=== PATIENT | female | born 1955 | race Caucasian/White ===

== ENCOUNTER 2017-09-17 21:12 | Emergency (ER) | payer MEDICAID, OTHER ==
[~2017-09-17] VITALS: Ht 180.3 cm; Wt 77.1 kg
[2017-09-17 22:01] LABS: Basophils # (auto) 0.1 uL; Basophils % (auto) 0.8 % (0.0-2.0); Eosinophils # (auto) 0.1 uL; Eosinophils % (auto) 0.7 % (0.0-7.0); Hematocrit 36.3 % (36.0-46.0); Hemoglobin 12.5 g/dL (12.2-16.2); Lymphocytes # (auto) 1.3 uL; Mean Corpuscular Hemoglobin 31.8 pg (28.0-32.0); Mean Corpuscular Hgb Conc. 34.4 g/dL (32.0-36.0); Mean Corpuscular Volume 92.4 fL (80.0-100.0); Monocytes # (auto) 0.4 uL; Monocytes % (auto) 5.6 % (0.0-12.0); Neutrophils # (auto) 5.8 uL; Neutrophils % (auto) 75.9 % (37.0-80.0); Platelet Count (auto) 265 10^3/uL (140-450); Red Blood Cells 3.93 10^6/uL (4.0-5.20); Red Cell Distribution Width 13.1 % (11.8-14.3); White Blood Cell 7.6 10^3/uL (4.4-10.8)
[2017-09-17 22:13] LABS: INR 0.91 (0.9-1.15); Prothrombin Time 9.9 sec (9.37-12.3)
[2017-09-17 22:16] LABS: Albumin 3.8 g/dL (3.4-5.0); Anion Gap 9 (5-15); BUN/Creatinine Ratio 12.2; Blood Urea Nitrogen 10 mg/dL (7-18); Calcium 8.8 mg/dL (8.5-10.1); Carbon Dioxide 25 mmol/L (21-32); Chloride 103 mmol/L (98-107); GFR African American 91 mL/min; GFR Non-African American 76 mL/min; Glucose 134 mg/dL (74-106); Potassium 3.8 mmol/L (3.5-5.1); Sodium 137 mmol/L (136-145)
[2017-09-17 22:37] LABS: Alanine Aminotransferase 29 U/L (13-56); Alkaline Phosphatase 66 U/L (45-117); Aspartate Aminotransferase 24 U/L (15-37); Bilirubin, Total 0.3 mg/dL (0.2-1.0); Blood Alcohol < 3.0 mg/dL (0-5); Total Protein 7.3 g/dL (6.4-8.2)
[2017-09-17] MEDS ORDERED: SODIUM CHLORIDE 0.9% 1,000 ML IV ONE (23:45)
[2017-09-17 23:58] LABS: Salicylate < 1.7 mg/dL (2.8-20.0)
[2017-09-18 00:01] LABS: Acetaminophen < 2.0 ug/mL (10-30); Amylase 36 U/L (25-115); Lipase 138 U/L (73-393)
[2017-09-18] MEDS ORDERED: FAMOTIDINE (10MG/ML) 2ML VL IV ONE (01:15)
[2017-09-18] MEDS ORDERED: cloNIDine HCL 0.1 MG TAB PO ONE (01:15)
[2017-09-18] MEDS ORDERED: diphenhdrAMINE HCL 50 MG/1 ML VL IV ONE (02:00)
[2017-09-18] MEDS ORDERED: MORPHINE SULFATE 4 MG/ML SYR/VIAL IV ONE (02:00)
[2017-09-18 03:33] LABS: Urine WBC None Seen /hpf (0 - 5)
[2017-09-18 03:41] LABS: Urine Bacteria NONE SEEN /hpf (None Seen); Urine Blood Negative /uL (Negative); Urine Specific Gravity 1.006 (1.001-1.035)
[2017-09-18 03:56] LABS: Alcohol, Urine < 3.0 mg/dL (0-5); Amphetamine Screen, Urine NEGATIVE (NEGATIVE); Barbiturate Scree,Urine NEGATIVE (NEGATIVE); Benzodiazephine Screen, Urine NEGATIVE (NEGATIVE); Cannabinoid Screen, Urine NEGATIVE (NEGATIVE); Cocaine Screen, Urine NEGATIVE (NEGATIVE); Opiate Scree,Urine POSITIVE (NEGATIVE); Phencyclidine Screen, Urine NEGATIVE (NEGATIVE)
[2017-09-18 05:27] VITALS: BP 165/111
[2017-09-18] MEDS ORDERED: HYDROmorphone HCL 2 MG/ML VL ONE (05:29)
[2017-09-18] MEDS ORDERED: METOCLOPRAMIDE HCL 5MG/ml INJ 2ml VIAL ONE (05:30)
[2017-09-18] MEDS ORDERED: HYDROmorphone HCL 2 MG/ML VL IV ONE (05:45)
[2017-09-18] MEDS ORDERED: METOCLOPRAMIDE HCL 5MG/ml INJ 2ml VIAL IV ONE (05:45)
[2017-09-19] MEDS ORDERED: MET50T PO (13:33)
[2017-09-19] MEDS ORDERED: MET25T (13:33)
[2017-09-19] MEDS ORDERED: HYDR-4072 (13:33)
[2017-09-19] MEDS ORDERED: RANI-229 (13:33)
[2017-09-19] MEDS ORDERED: LEV25T PO (13:33)
[2017-09-19] MEDS ORDERED: [UNRECOGNIZED DRUG - CODE] (13:33)
[2017-09-19] MEDS ORDERED: GABA800T97 PO (13:33)
[2017-09-19] MEDS ORDERED: ZOSTINJ (13:33)
[2017-09-19] MEDS ORDERED: BACL20TA (13:33)
[2017-09-19] MEDS ORDERED: AMIT100T2 PO (13:33)
[2017-09-19] MEDS ORDERED: LORA10TA12 PO (13:33)
[2017-09-19] MEDS ORDERED: SUMA100T15 PO (13:33)
== END 2017-09-18 06:18 | disposition home or self-care (01) ==
LOC: EDBD 21:12 → ER 21:21
DX: R41.82 Altered mental status, unspecified (principal); G92 Toxic encephalopathy; I10 Essential (primary) hypertension; F17.210 Nicotine dependence, cigarettes, uncomplicated; N13.30 Unspecified hydronephrosis
CPT/HCPCS: 36415; 70450; 71045; 74176; 80053; 80307; 80320; 80329; 81001; 82140; 82150; 83690; 83735; 83880; 84484; 84702; 85025; 85610; 85730; 93005; 96374; 96375; 99285; J1170; J1200; J2270; J2765; J3490; J7030

== ENCOUNTER 2017-09-18 13:02 | Inpatient (IN) | payer MEDICAID, OTHER ==
[~2017-09-18] VITALS: Ht 175.3 cm; Wt 74.7 kg
[2017-09-18] MEDS ORDERED: SODIUM CHLORIDE 0.9% 1,000 ML IV ONE (13:16)
[2017-09-18 13:35] LABS: Basophils # (auto) 0.1 uL; Basophils % (auto) 0.8 % (0.0-2.0); Eosinophils # (auto) 0.1 uL; Eosinophils % (auto) 0.6 % (0.0-7.0); Hematocrit 39.1 % (36.0-46.0); Hemoglobin 13.2 g/dL (12.2-16.2); Lymphocytes # (auto) 1.4 uL; Lymphocytes % (auto) 17.9 % (10.0-50.0); Mean Corpuscular Hemoglobin 31.5 pg (28.0-32.0); Mean Corpuscular Hgb Conc. 33.6 g/dL (32.0-36.0); Mean Corpuscular Volume 93.5 fL (80.0-100.0); Monocytes # (auto) 0.8 uL; Monocytes % (auto) 9.5 % (0.0-12.0); Neutrophils # (auto) 5.6 uL; Neutrophils % (auto) 71.2 % (37.0-80.0); Nucleated Red Blood Cells % 0.1 %; Platelet Count (auto) 275 10^3/uL (140-450); Red Blood Cells 4.18 10^6/uL (4.0-5.20); Red Cell Distribution Width 13.4 % (11.8-14.3); White Blood Cell 7.9 10^3/uL (4.4-10.8)
[2017-09-18 13:55] LABS: Albumin 3.9 g/dL (3.4-5.0); Anion Gap 11 (5-15); Blood Urea Nitrogen 8 mg/dL (7-18); Carbon Dioxide 23 mmol/L (21-32); Chloride 106 mmol/L (98-107); Glucose 104 mg/dL (74-106); Potassium 3.5 mmol/L (3.5-5.1); Sodium 140 mmol/L (136-145)
[2017-09-18 13:57] LABS: Alanine Aminotransferase 32 U/L (13-56); Aspartate Aminotransferase 26 U/L (15-37); BUN/Creatinine Ratio 10.1; GFR African American 95 mL/min; GFR Non-African American 79 mL/min
[2017-09-18 14:02] LABS: Alkaline Phosphatase 74 U/L (45-117); Bilirubin, Total 0.3 mg/dL (0.2-1.0)
[2017-09-18] MEDS ORDERED: HYDROcodone-ACET 5/325MG TAB PO PRN (20:45)
[2017-09-18] MEDS ORDERED: ONDANSETRON HCL 4 MG/2 ML VIAL IV PRN (20:45)
[2017-09-18] MEDS ORDERED: ACETAMINOPHEN 325 MG TAB PO PRN (20:45)
[2017-09-18] MEDS ORDERED: TEMAZEPAM 15 MG CAP PO PRN (20:45)
[2017-09-18] MEDS: LORazepam 2MG/ML-1ML VIAL IV PRN (21:41)
[2017-09-18] MEDS: FAMOTIDINE 20 MG TAB PO SCH (21:46)
[2017-09-18] MEDS: GABAPENTIN 400 MG CAP PO SCH (22:00)
[2017-09-18] MEDS: METOPROLOL TARTRATE 25 MG TAB PO SCH (22:00)
[2017-09-18] MEDS: AMITRIPTYLINE HCL 25 MG TAB PO SCH (22:00)
[2017-09-18] MEDS ORDERED: METOPROLOL TARTRATE 1MG/1ML-5ML VIAL IV ONE (22:15)
[2017-09-18] MEDS ORDERED: HALOPERIDOL LACTATE 5 MG/ML INJ VIAL IM ONE (22:30)
[2017-09-19 00:30] LABS: Urine Bacteria NONE SEEN /hpf (None Seen); Urine Blood Negative /uL (Negative); Urine Mucus FEW (None Seen); Urine Specific Gravity 1.013 (1.001-1.035); Urine WBC 1 /hpf (0 - 5)
[2017-09-19 00:38] LABS: Alcohol, Urine < 3.0 mg/dL (0-5); Amphetamine Screen, Urine NEGATIVE (NEGATIVE); Barbiturate Scree,Urine NEGATIVE (NEGATIVE); Benzodiazephine Screen, Urine NEGATIVE (NEGATIVE); Cannabinoid Screen, Urine NEGATIVE (NEGATIVE); Cocaine Screen, Urine NEGATIVE (NEGATIVE); Opiate Scree,Urine POSITIVE (NEGATIVE); Phencyclidine Screen, Urine NEGATIVE (NEGATIVE)
[2017-09-19] MEDS: LORazepam 2MG/ML-1ML VIAL IV PRN (04:44)
[2017-09-19 05:10] LABS: Basophils # (auto) 0.2 uL; Basophils % (auto) 2.6 % (0.0-2.0); Eosinophils # (auto) 0.1 uL; Eosinophils % (auto) 1.6 % (0.0-7.0); Hematocrit 39.5 % (36.0-46.0); Lymphocytes # (auto) 0.8 uL; Lymphocytes % (auto) 10.6 % (10.0-50.0); Mean Corpuscular Hemoglobin 30.9 pg (28.0-32.0); Mean Corpuscular Hgb Conc. 32.8 g/dL (32.0-36.0); Mean Corpuscular Volume 94.1 fL (80.0-100.0); Monocytes # (auto) 0.6 uL; Monocytes % (auto) 7.2 % (0.0-12.0); Neutrophils # (auto) 6.2 uL; Nucleated Red Blood Cells % 0.1 %; Platelet Count (auto) 292 10^3/uL (140-450); Red Cell Distribution Width 13.5 % (11.8-14.3)
[2017-09-19 05:29] LABS: Albumin 3.6 g/dL (3.4-5.0); BUN/Creatinine Ratio 14.8; Potassium 3.6 mmol/L (3.5-5.1)
[2017-09-19 05:32] LABS: Bilirubin, Total 0.4 mg/dL (0.2-1.0); Total Protein 7.4 g/dL (6.4-8.2)
[2017-09-19] MEDS: GABAPENTIN 400 MG CAP PO SCH ×3 (06:00→22:00)
[2017-09-19] MEDS: LEVOTHYROXINE SODIUM 25 MCG TAB PO SCH (07:00)
[2017-09-19] MEDS: METOPROLOL TARTRATE 25 MG TAB PO SCH ×2 (10:20→22:00)
[2017-09-19] MEDS: FAMOTIDINE 20 MG TAB PO SCH ×2 (10:20→22:00)
[2017-09-19] MEDS: ENOXAPARIN SOD 40 MG/0.4 ML SYRINGE SC SCH (10:20)
[2017-09-19] MEDS ORDERED: AMIT100T2 PO (13:33)
[2017-09-19] MEDS ORDERED: RANI-229 (13:33)
[2017-09-19] MEDS ORDERED: ZOSTINJ (13:33)
[2017-09-19] MEDS ORDERED: LORA10TA12 PO (13:33)
[2017-09-19] MEDS ORDERED: HYDR-4072 (13:33)
[2017-09-19] MEDS ORDERED: LEV25T PO (13:33)
[2017-09-19] MEDS ORDERED: BACL20TA (13:33)
[2017-09-19] MEDS ORDERED: SUMA100T15 PO (13:33)
[2017-09-19] MEDS ORDERED: MET25T (13:33)
[2017-09-19] MEDS ORDERED: MET50T PO (13:33)
[2017-09-19] MEDS ORDERED: GABA800T97 PO (13:33)
[2017-09-19] MEDS ORDERED: [UNRECOGNIZED DRUG - CODE] (13:33)
[2017-09-19] MEDS: AMITRIPTYLINE HCL 25 MG TAB PO SCH (22:00)
[2017-09-19 22:50] VITALS: BP 167/94
[2017-09-19] MEDS: hydrALAZINE HCL 20 MG/ML VL IV PRN (22:56)
[2017-09-20] MEDS: hydrALAZINE HCL 20 MG/ML VL IV PRN (06:00)
[2017-09-20] MEDS: GABAPENTIN 400 MG CAP PO SCH ×3 (06:00→21:56)
[2017-09-20] MEDS: LEVOTHYROXINE SODIUM 25 MCG TAB PO SCH (06:30)
[2017-09-20 07:12] VITALS: BP 141/85
[2017-09-20 09:30] VITALS: BP 146/85
[2017-09-20] MEDS: ENOXAPARIN SOD 40 MG/0.4 ML SYRINGE SC SCH (10:00)
[2017-09-20] MEDS: FAMOTIDINE 20 MG TAB PO SCH ×2 (10:00→21:56)
[2017-09-20 13:00] VITALS: BP 155/91
[2017-09-20] MEDS ORDERED: METOPROLOL TARTRATE 1MG/1ML-5ML VIAL IV PRN (13:00)
[2017-09-20] MEDS ORDERED: SODIUM CHLORIDE 0.9% 1,000 ML IV ONE (14:30)
[2017-09-20] MEDS: LORazepam 2MG/ML-1ML VIAL IV PRN ×2 (16:14→16:20)
[2017-09-20] MEDS ORDERED: LORazepam 2MG/ML-1ML VIAL IV PRN ×2 (16:45→19:45)
[2017-09-20 17:00] VITALS: BP 147/86
[2017-09-20] MEDS: AMITRIPTYLINE HCL 25 MG TAB PO SCH (21:56)
[2017-09-20] MEDS: METOPROLOL TARTRATE 25 MG TAB PO SCH (21:57)
[2017-09-20] MEDS ORDERED: LORazepam 2MG/ML-1ML VIAL IV SCH (22:00)
[2017-09-20 22:49] VITALS: BP 150/77
[2017-09-21] MEDS: GABAPENTIN 400 MG CAP PO SCH ×3 (06:18→21:55)
[2017-09-21] MEDS: LEVOTHYROXINE SODIUM 25 MCG TAB PO SCH (06:30)
[2017-09-21 09:00] VITALS: BP 124/84
[2017-09-21] MEDS: METOPROLOL TARTRATE 25 MG TAB PO SCH ×2 (11:50→21:55)
[2017-09-21] MEDS: ENOXAPARIN SOD 40 MG/0.4 ML SYRINGE SC SCH (11:51)
[2017-09-21] MEDS: FAMOTIDINE 20 MG TAB PO SCH ×2 (11:51→21:55)
[2017-09-21 13:00] VITALS: BP 134/80
[2017-09-21] MEDS ORDERED: LORA-622 PO (14:13)
[2017-09-21] MEDS ORDERED: RANITAB30 PO (14:15)
[2017-09-21 18:08] VITALS: BP 146/93
[2017-09-21 20:00] VITALS: BP 162/90
[2017-09-21 22:00] VITALS: BP 162/90
[2017-09-21] MEDS: AMITRIPTYLINE HCL 25 MG TAB PO SCH (22:00)
[2017-09-22 05:00] VITALS: BP 104/72
[2017-09-22] MEDS: GABAPENTIN 400 MG CAP PO SCH (06:09)
[2017-09-22] MEDS: LEVOTHYROXINE SODIUM 25 MCG TAB PO SCH (06:44)
[2017-09-22 08:00] VITALS: BP 128/72
[2017-09-22 08:44] VITALS: BP 128/72
[2017-09-22 09:00] VITALS: BP 133/68
== END 2017-09-22 09:29 | disposition home or self-care (01) | DRG 52 ==
LOC: EDBD 13:02 → ER 13:02 → OVERFLOW 13:03 → CENTRAL 09-19 21:49 → TELE-CENTR 09-20 14:43 → TELE-EAST 09-21 01:54
PROVIDERS: ADMIT Nurse Practitioner; ATTEND Family Medicine
DX: G93.41 Metabolic encephalopathy (principal); F20.9 Schizophrenia, unspecified; I10 Essential (primary) hypertension; F11.23 Opioid dependence with withdrawal; F29 Unspecified psychosis not due to a substance or known physiological condition; E03.9 Hypothyroidism, unspecified; F41.9 Anxiety disorder, unspecified; F17.210 Nicotine dependence, cigarettes, uncomplicated; I70.0 Atherosclerosis of aorta; Z79.899 Other long term (current) drug therapy
CPT/HCPCS: 36415; 70450; 71045; 80053; 80307; 81001; 84443; 84484; 85025; 95819